=== PATIENT | female | born 1960 | race Caucasian/White ===

== ENCOUNTER 2024-05-16 06:42 | Day surgery (SDC) | payer BC ==
[2024-05-16] MEDS ORDERED: CEFAZOLIN 2 GM/100 ML NaCl 2 GM/100 ML IVPB IV ONE (07:09)
[2024-05-16] MEDS ORDERED: Lactated Ringers 1,000 ML IV ONE (07:09)
[2024-05-16] MEDS: CEFAZOLIN 2 GM/100 ML NaCl 2 GM/100 ML IVPB IV SCH (07:12)
[2024-05-16] MEDS: Lactated Ringers 1,000 ML IV SCH (07:12)
[2024-05-16] MEDS ORDERED: Pepcid 20 MG VIAL IV ONE (08:05)
[2024-05-16] MEDS ORDERED: TYLENOL EXTRA STRENGTH 500 MG ONE (08:05)
[2024-05-16] MEDS ORDERED: celeBREX 100 MG ONE (08:05)
[2024-05-16] MEDS ORDERED: NEURONTIN ONE (08:05)
[2024-05-16] MEDS ORDERED: Decadron 4 MG ONE (08:05)
[2024-05-16] MEDS: TYLENOL EXTRA STRENGTH 500 MG PO ONE (08:06)
[2024-05-16] MEDS: Decadron 4 MG PO ONE (08:06)
[2024-05-16] MEDS: NEURONTIN PO ONE (08:06)
[2024-05-16] MEDS: celeBREX 100 MG PO ONE (08:06)
[2024-05-16] MEDS: Pepcid 20 MG VIAL IV ONE (08:07)
[2024-05-16] MEDS: Transderm Scop 1.5MG Patch TOP PRN (08:09)
[2024-05-16] MEDS ORDERED: Transderm Scop 1.5MG Patch ONE (08:09)
[2024-05-16] MEDS ORDERED: Marcaine 0.5%/Epinephrine 10 ML ONE (08:43)
[2024-05-16] MEDS ORDERED: dexAMETHasone sodium phosphate ONE (08:43)
[2024-05-16] MEDS ORDERED: Xylocaine-Mpf 2% 5 Ml Vial ONE (08:43)
[2024-05-16] MEDS ORDERED: DEXMEDETOMIDINE 80 MCG/20ML-NS IV ONE (08:43)
[2024-05-16] MEDS ORDERED: Versed 2 MG/2 ML Injection ONE (08:45)
[2024-05-16] MEDS ORDERED: propofoL IV ONE (08:46)
[2024-05-16] MEDS ORDERED: SUBLIMAZE 100 MCG/2 ML ONE (09:50)
[2024-05-16] MEDS ORDERED: Epinephrine Preservative Free 1 MG/ML ONE ×3 (11:13→12:56)
[2024-05-16] MEDS ORDERED: Zofran 4 MG/2 ML VIAL ONE (11:22)
[2024-05-16] MEDS ORDERED: Ephedrine Sulfate 50 MG/ML ONE (11:54)
[2024-05-16 15:07] VITALS: RESP 18; O2SAT 93
[2024-05-16] MEDS ORDERED: NORCO 5/325 MG PO PRN ×2 (15:28)
[2024-05-16] MEDS ORDERED: TYLENOL EXTRA STRENGTH 500 MG PO PRN (15:29)
[2024-05-16] MEDS: Zocor 10MG PO SCH (16:20)
[2024-05-16] MEDS: Protonix 40MG Tablet PO SCH (16:20)
[2024-05-16 19:42] VITALS: BP 117/57; PULSE 92; TEMP 98.3
[2024-05-17] MEDS ORDERED: Toprol Xl 50 MG PO SCH (10:00)
[2024-05-17] MEDS ORDERED: Flonase NASAL NS SCH (10:00)
--- NOTE | 2024-05-17 11:29 | OP ---
SURGERY DATE/TIME: 05/16/2024 [id number] PREOPERATIVE DIAGNOSES: Torn right rotator cuff with impingement syndrome; degenerative tearing of the glenoid labrum and biceps tendon. POSTOPERATIVE DIAGNOSES: Torn right rotator cuff with impingement syndrome; degenerative tearing of the glenoid labrum and biceps tendon. PROCEDURE: Arthroscopy of the right shoulder with rotator cuff repair, subacromial decompression, biceps tenotomy and debridement of glenoid labrum. SURGEON: eJm Bryan II, DO. ANESTHESIA: General, with a block for postop pain control. DESCRIPTION OF PROCEDURE AND FINDINGS: The patient was identified, and informed consent was obtained. The patient was taken to the preop holding area where the block was administered. Once an appropriate block had been completed, the patient was taken to the operative suite and placed in a supine position on the operating table where the general anesthetic was administered. She was then placed into the left lateral decubitus position with the right side up, axillary roll placed, bony prominences padded. Shoulders were rotated back about 20 degrees and the camarena bag was inflated. The right upper extremity was then prepped and draped in the usual sterile fashion and placed into the STaR abduction traction device with about 10 pounds of longitudinal traction, 40 degrees of lateral opening and 20 degrees of forward flexion. Shoulder was marked for bony landmarks and a standard time-out was taken. Following this, a standard posterior portal was created with an 11 blade. Trocar and cannula were placed in the joint. The joint was then distended with the arthroscopic pump. An anterior portal was created with an 11 blade after identifying the level with an 18-gauge spinal needle. The glenohumeral joint was then inspected in a systematic fashion. There was noted to be significant degenerative tearing of the anterior and superior glenoid labrum and a near complete tear of the biceps tendon. The biceps tenotomy was accomplished with the shaver and a wand. The labrum was debrided with a shaver. The patient had some mild degenerative changes noted at the glenoid and the humeral head. The patient had a large tear of the rotator cuff involving the supraspinatus and part of the infraspinatus, retracted back to the level of the glenoid. The scope was placed into the bursa and the undersurface of the acromion was denuded of soft tissue and about 1-1/2 to 2 bur thicknesses of acromion was removed anteriorly, taking this to a smooth transition posteriorly. There was a small inferior osteophyte on the clavicle, which was also resected. Utilizing the elevator, the rotator cuff was then mobilized as it was quite scarred down. Cuff was noted to be somewhat thinned but did still have good substance. The cuff was mobilized almost completely over the footplate and utilizing a SpeedBridge configuration, the rotator cuff was repaired. There was noted to be a small opening still posteriorly at the infraspinatus and utilizing the extra suture from the lateral anchor, this was then repaired with a simple suture and at this point then, the construct was revisualized and excellent repair was noted. The instrumentation was removed. The portal sites were closed with interrupted 4-0 nylon suture. Adaptic, 4 x 4's and standard postop dressing applied. The patient was placed into an UltraSling, transferred to the cart, and taken to the recovery room in satisfactory condition, having tolerated the procedure well.
== END 2024-05-16 20:00 | disposition home or self-care (01) ==
LOC: SDC 06:42 → MED SURG 14:56 → SDC 20:00
PROVIDERS: ATTEND Orthopaedic Surgery
DX: M75.121 Complete rotator cuff tear or rupture of right shoulder, not specified as traumatic (principal); M75.41 Impingement syndrome of right shoulder; S46.211A Strain of muscle, fascia and tendon of other parts of biceps, right arm, initial encounter
CPT/HCPCS: 23405; 29823; 29826; 29827; 64415; 76937; J0171; J0690; J1100; J2250; J2405; J2704; J3010; A9270-GY

== ENCOUNTER 2025-01-21 06:22 | Day surgery (SDC) | payer BC ==
[2025-01-21] MEDS ORDERED: Lactated Ringers 1,000 ML IV ONE ×2 (06:34→08:02)
[2025-01-21 06:52] VITALS: RESP 16
[2025-01-21] MEDS: Lactated Ringers 1,000 ML IV SCH (06:59)
[2025-01-21] MEDS ORDERED: propofoL IV ONE ×2 (08:01→08:17)
[2025-01-21] MEDS ORDERED: Versed 2 MG/2 ML Injection ONE (08:02)
[2025-01-21 08:50] VITALS: TEMP 96.5
[2025-01-21 09:04] VITALS: BP 125/75; PULSE 70; O2SAT 97
--- NOTE | 2025-01-22 11:34 | OP ---
SURGERY DATE/TIME: 01/21/2025 [id number] PREOPERATIVE DIAGNOSIS: Screening exam. POSTOPERATIVE DIAGNOSIS: Sigmoid diverticulosis; otherwise, normal colon. PROCEDURE: Colonoscopy. SURGEON: Simon Malin MD ANESTHESIA: Medication given by the anesthesia department. INDICATIONS: The patient is a 64-year-old white female presenting now for screening colonoscopy. She reports she had one 10 years ago; it was normal. She is having no symptoms. The patient was felt to need to have an endoscopic evaluation for screening purposes. She was apprised of risks of the procedure including the risk of perforation, phlebitis, untoward reaction to medication, bleeding, and missed lesions. The patient verbalized her understanding and desired to have the procedure performed. DESCRIPTION OF PROCEDURE AND FINDINGS: The patient was given medication by the anesthesia department. She had continuous pulse oximetry, ECG monitoring, and intermittent blood pressure monitoring during the examination. She was placed in left lateral decubitus position. Digital rectal examination was performed that revealed normal anal sphincter tone and no masses. The flexible Olympus videocolonoscope was used to intubate the rectum. A view of the colon was developed sequentially to the cecum. Upon insertion and withdrawal, including retroflexed view of the rectum, was noted a few diverticula in the sigmoid colon. No other mucosal lesions being encountered. The scope was removed. The patient tolerated procedure well and was sent back to outpatient recovery in good condition. The prep was noted to be fair to good.
== END 2025-01-21 09:16 | disposition home or self-care (01) ==
LOC: SDC 06:22
PROVIDERS: ATTEND Family Medicine
DX: Z12.11 Encounter for screening for malignant neoplasm of colon (principal); K57.30 Diverticulosis of large intestine without perforation or abscess without bleeding